=== PATIENT | female | born 1985 | race American Indian/Alaskan Native ===

== ENCOUNTER 2017-09-04 16:43 | Emergency (ER) | payer OTHER ==
[2017-09-04 17:26] VITALS: RESP 18; TEMP 98.7; O2SAT 100
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
[2017-09-04 19:54] VITALS: BP 118/78; PULSE 60
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
== END 2017-09-04 19:53 | disposition home or self-care (01) ==
LOC: ED 16:43
DX: M25.561 Pain in right knee (principal); M79.641 Pain in right hand; V49.49XA Driver injured in collision with other motor vehicles in traffic accident, initial encounter; Y92.410 Unspecified street and highway as the place of occurrence of the external cause
CPT/HCPCS: 73130; 73562; 96372; 99284; J1885